=== PATIENT | male | born 1960 | race Two or more races ===

== ENCOUNTER 2022-11-14 15:48 | Inpatient (IN) | payer MEDICARE, MEDICAID ==
[~2022-11-14] VITALS: Ht 177.8 cm; Wt 113.4 kg
[2022-11-14] MEDS ORDERED: IOHEXOL-350 100 ML BOTTLE ONE (16:08)
[2022-11-14 16:43] LABS: EOSINOPHILS % 0.3 % (0.0-5.0); HEMATOCRIT. 34.8 % (42.0-52.0); HEMOGLOBIN. 11.4 g/dL (14.0-18.0); LYMPHOCYTES % 20.4 % (20.0-50.0); MEAN CORPUSCULAR HEMOGLOBIN 30.9 pg (28.0-32.0); MEAN PLATELET VOLUME 8.2 fl (7.4-10.4); MONOCYTES % 10.4 % (2.0-8.0); NEUTROPHILS % 67.9 % (40.0-76.0); PLATELET 180 x1000/uL (130-400); RED CELL DISTRIBUTION WIDTH 13.9 % (11.6-14.6)
[2022-11-14 16:46] LABS: CHLORIDE 101 mEq/L (98-107)
[2022-11-14 16:58] LABS: ETHANOL BLOOD 78 mg/dL
[2022-11-14] MEDS ORDERED: ASPIRIN 81MG TABLET PO ONE (17:45)
[2022-11-14] MEDS ORDERED: CLONIDINE 0.1MG TABLET PO PRN (18:45)
[2022-11-14] MEDS ORDERED: ONDANSETRON HCL 4MG/2ML INJ IV PRN (18:45)
[2022-11-14] MEDS ORDERED: ACETAMINOPHEN 325MG TABLET PO PRN ×2 (18:45)
[2022-11-14] MEDS ORDERED: LORAZEPAM 0.5MG TABLET PO PRN (18:45)
[2022-11-14] MEDS ORDERED: IPRATROPIUM/ALBUTEROL 0.5-3(2.5)MG/3ML NEB HHN PRN (18:45)
[2022-11-14] MEDS: HYDROCODONE/ACETAMINOPHEN 5/325MG TABLET PO PRN (18:56)
[2022-11-14] MEDS ORDERED: NALOXONE HCL 0.4MG/ML VIAL IV PRN (19:00)
[2022-11-14] MEDS ORDERED: MVI, ADULT NO.1 10 ML, FOLIC ACID 1 MG, THIAMINE HCL 100 MG in SODIUM CHLORIDE 0.9% 1,0... IV SCH ×4 (20:00)
[2022-11-14 21:15] VITALS: BP 118/55
[2022-11-14 22:33] VITALS: BP 118/55
[2022-11-15] VITALS: BP 108/67
[2022-11-15] MEDS ORDERED: DAPA5TAB PO ×2 (00:09→00:14)
[2022-11-15] MEDS ORDERED: CARV25TA47 PO (00:09)
[2022-11-15] MEDS ORDERED: SENN-257 PO (00:09)
[2022-11-15] MEDS ORDERED: ATOR-2 PO (00:09)
[2022-11-15] MEDS ORDERED: ALBU90AE (00:09)
[2022-11-15] MEDS ORDERED: POT (00:09)
[2022-11-15] MEDS ORDERED: BUME2TAB7 PO ×2 (00:09→00:14)
[2022-11-15] MEDS ORDERED: SACU1TAB7 PO (00:09)
[2022-11-15] MEDS ORDERED: RANO10005 PO (00:09)
[2022-11-15] MEDS ORDERED: FAMO20TA8 PO (00:09)
[2022-11-15] MEDS ORDERED: AMIO100T4 (00:09)
[2022-11-15] MEDS ORDERED: RANO500T6 PO (00:09)
[2022-11-15] MEDS ORDERED: FURO40TA5 PO (00:09)
[2022-11-15] MEDS ORDERED: HYDR-459 PO (00:14)
[2022-11-15] MEDS ORDERED: [UNRECOGNIZED DRUG - CODE] (00:14)
[2022-11-15] MEDS: HYDROCODONE/ACETAMINOPHEN 5/325MG TABLET PO PRN ×2 (01:05→20:47)
[2022-11-15 03:11] LABS: CLARITY URINE CLEAR (CLEAR); COLOR URINE YELLOW (YELLOW); KETONES URINE TRACE (NEGATIVE); LEUKOCYTE ESTERASE URINE NEGATIVE (NEGATIVE); NITRITE URINE NEGATIVE (NEGATIVE); OCCULT BLOOD URINE NEGATIVE (NEGATIVE); PH URINE 5.5 (4.5-8.0); PROTEIN URINE TRACE (NEGATIVE); SPECIFIC GRAVITY URINE 1.042 (1.005-1.030); UROBILINOGEN URINE 0.2 E.U./dL (0.2-1.0)
[2022-11-15 04:00] VITALS: BP 112/73
[2022-11-15 04:06] LABS: *AMPHETAMINES SCREEN URINE NEGATIVE (NEGATIVE); *BARBITURATES SCREEN URINE NEGATIVE (NEGATIVE); *BENZODIAZEPINES SCREEN URINE NEGATIVE (NEGATIVE); *COCAINE SCREEN URINE NEGATIVE (NEGATIVE); CANNABINOID URINE SCREEN NEGATIVE (NEGATIVE); METHADONE URINE SCREEN NEGATIVE (NEGATIVE); OPIATES URINE SCREEN PRESUMTIVE POSITIVE (NEGATIVE); PHENCYCLIDINE URINE SCREEN NEGATIVE (NEGATIVE)
[2022-11-15 06:59] LABS: BASOPHILS % 0.6 % (0.0-2.0); EOSINOPHILS % 0.6 % (0.0-5.0); HEMATOCRIT. 33.1 % (42.0-52.0); HEMOGLOBIN. 10.9 g/dL (14.0-18.0); MEAN CORPUSCULAR HEMOGLOBIN 30.8 pg (28.0-32.0); MEAN CORPUSCULAR VOLUME 93.7 fL (80.0-94.0); MEAN PLATELET VOLUME 8.7 fl (7.4-10.4); MONOCYTES % 10.7 % (2.0-8.0); NEUTROPHILS % 59.1 % (40.0-76.0); PLATELET 162 x1000/uL (130-400); RED BLOOD CELL COUNT 3.54 mill/uL (4.7-6.1); RED CELL DISTRIBUTION WIDTH 13.9 % (11.6-14.6)
[2022-11-15 08:00] VITALS: BP 106/67
[2022-11-15] MEDS: NON FORMULARY PATIENT HOME MED PO SCH ×2 (08:58→20:50)
[2022-11-15] MEDS ORDERED: HYDROXYZINE 25MG TABLET PO PRN (11:30)
[2022-11-15] MEDS ORDERED: FAMOTIDINE 20MG TABLET PO PRN (11:30)
[2022-11-15] MEDS ORDERED: FUROSEMIDE 40MG TABLET PO SCH (11:30)
[2022-11-15] MEDS: AMIODARONE HCL 200 MG TABLET PO SCH (11:30)
[2022-11-15] MEDS ORDERED: SENNOSIDES 8.6MG TABLET PO PRN (11:30)
[2022-11-15 12:00] VITALS: BP 129/81
[2022-11-15] MEDS ORDERED: MORPHINE SULFATE 2 MG/ML CPJ (NOT FOR IM USE) IV PRN (12:45)
[2022-11-15] MEDS: ASPIRIN 81MG EC TABLET PO SCH (14:39)
[2022-11-15 16:00] VITALS: BP 150/87
[2022-11-15] MEDS ORDERED: SACUBITRIL/VALSARTAN 49MG/51MG TABLET PO SCH (17:00)
[2022-11-15] MEDS: BUMETANIDE 1MG TABLET PO SCH (17:46)
[2022-11-15] MEDS: RANOLAZINE 500 MG TAB.SR.12H PO SCH (17:46)
[2022-11-15 20:00] VITALS: BP 100/65
[2022-11-15] MEDS: ATORVASTATIN CALCIUM 40MG TABLET PO SCH (20:44)
[2022-11-15] MEDS: CARVEDILOL 12.5MG TABLET PO SCH (20:45)
[2022-11-16] VITALS: BP 98/64
[2022-11-16 04:00] VITALS: BP 108/68
[2022-11-16 08:00] VITALS: BP 104/66
[2022-11-16] MEDS: CARVEDILOL 12.5MG TABLET PO SCH ×2 (08:34→20:52)
[2022-11-16] MEDS: RANOLAZINE 500 MG TAB.SR.12H PO SCH ×2 (08:51→17:09)
[2022-11-16] MEDS: AMIODARONE HCL 200 MG TABLET PO SCH (08:52)
[2022-11-16] MEDS: BUMETANIDE 1MG TABLET PO SCH ×2 (08:52→17:09)
[2022-11-16] MEDS: ASPIRIN 81MG EC TABLET PO SCH (08:52)
[2022-11-16] MEDS: NON FORMULARY PATIENT HOME MED PO SCH ×3 (08:58→20:52)
[2022-11-16 12:00] VITALS: BP 113/71
[2022-11-16 16:00] VITALS: BP 101/60
[2022-11-16 20:11] VITALS: BP 120/84
[2022-11-16] MEDS: ATORVASTATIN CALCIUM 40MG TABLET PO SCH (20:52)
[2022-11-17 00:35] VITALS: BP 101/49
[2022-11-17 03:53] VITALS: BP 93/57
[2022-11-17] MEDS ORDERED: ASPI-1406 MT (07:03)
[2022-11-17] MEDS ORDERED: CLOP-31 MT (07:03)
[2022-11-17] MEDS: AMIODARONE HCL 200 MG TABLET PO SCH (08:46)
[2022-11-17] MEDS: BUMETANIDE 1MG TABLET PO SCH (08:46)
[2022-11-17] MEDS: ASPIRIN 81MG EC TABLET PO SCH (08:46)
[2022-11-17] MEDS: CARVEDILOL 12.5MG TABLET PO SCH (08:47)
[2022-11-17] MEDS ORDERED: FLUTICASONE PROPIONATE 50MCG/SPRAY BOTTLE BOTHNSTRLS SCH (09:00)
[2022-11-17 10:23] VITALS: BP 99/60
[2022-11-17 11:06] VITALS: BP 99/67
== END 2022-11-17 10:35 | disposition home health service (06) | DRG 65 ==
LOC: ER 15:48 → EDBEDREQTM 16:00 → EDBEDREQ 16:07 → EDBEDREQSVC 16:07 → 7EST 17:26 → EDBEDREQTM 17:52 → EDBEDREQ 17:52 → ENRESERV 19:07
PROVIDERS: ADMIT Internal Medicine; ATTEND Internal Medicine
DX: I63.9 Cerebral infarction, unspecified (principal); I50.22 Chronic systolic (congestive) heart failure; I69.354 Hemiplegia and hemiparesis following cerebral infarction affecting left non-dominant side; I65.22 Occlusion and stenosis of left carotid artery; J44.9 Chronic obstructive pulmonary disease, unspecified; F10.129 Alcohol abuse with intoxication, unspecified; I11.0 Hypertensive heart disease with heart failure; I25.10 Atherosclerotic heart disease of native coronary artery without angina pectoris; E66.9 Obesity, unspecified; D64.9 Anemia, unspecified; R26.9 Unspecified abnormalities of gait and mobility; Z68.35 Body mass index [BMI] 35.0-35.9, adult; Z82.49 Family history of ischemic heart disease and other diseases of the circulatory system; Z96.659 Presence of unspecified artificial knee joint; Z95.1 Presence of aortocoronary bypass graft; Z95.810 Presence of automatic (implantable) cardiac defibrillator; Y90.3 Blood alcohol level of 60-79 mg/100 ml
CPT/HCPCS: 36415; 70496; 70498; 71045; 80048; 80053; 80061; 80305; 80320; 81003; 83036; 83880; 84443; 84484; 85025; 93005; 93306; 97110; 97116; 97162; 97166; 99291; J2270; J3411; J3490; J7030; Q9967; G0480